=== PATIENT | female | born 1980 | race Caucasian/White ===

== ENCOUNTER 2016-08-06 18:39 | Emergency (ER) | payer SELFPAY ==
[2016-08-06 19:40] VITALS: BP 133/83
[2016-08-06 20:23] LABS: Basophils % (Auto) 0.7 % (0.0-1.8); Eosinophils % (Auto) 3.1 % (0.0-4.3); Hematocrit 26.3 % (30.3-42.9); Hemoglobin 8.8 gm/dl (10.1-14.3); Mean Corpuscular HGB Conc 33 % (30-34); Mean Corpuscular Hemoglobin 29 pg (28-32); Mean Corpuscular Volume 86 fl (79-97); Platelet Count 301 K/mm3 (140-440); Red Blood Count 3.07 M/mm3 (3.65-5.03); Red Cell Distribution Width 15.9 % (13.2-15.2); White Blood Count 9.7 K/mm3 (4.5-11.0)
[2016-08-07] MEDS ORDERED: TYLENOL #3 PO ONE (00:25)
[2016-08-07 00:34] LABS: Bilirubin,Urine NEG (Negative); Blood,Urine LG (Negative); Ketones,Urine 20 mg/dL (Negative); Leukocyte Esterase,Urine NEG (Negative); Nitrite,Urine NEG (Negative); Protein,Urine <15 mg/dL mg/dL (Negative); Urobilinogen,Urine < 2.0 mg/dL (<2.0); WBC,Urine < 1.0 /HPF (0.0-6.0)
--- NOTE | 2016-08-07 00:56 | Emergency Department Report ---
HPI - General Chief Complaint: Vaginal Bleeding Time Seen by Provider: 08/06/16 23:14 - HPI HPI: The patient is a 36-year-old female who presents for evaluation of vaginal bleeding and abdominal pain. The patient reports abdominal pain for the past 10 days, cramping in quality, 5/10 in severity, exacerbated with retching. She has experienced associated nausea and retching without vomiting. She shares that she has a space irregular menstrual periods for some time. The patient denies fever, trauma to the abdomen or genital tract, diarrhea, blood in the stool, dark tarry stool, dysuria, hematuria, flank pain, vaginal discharge, recurrent epistaxis, hematemesis, hemoptysis, or easy bruising and bleeding. She also denies blood thinner use. ED Past Medical Hx - Past Medical History Previous Medical History?: No - Surgical History Past Surgical History?: No - Social History Smoking Status: Never Smoker Substance Use Type: None - Medications Home Medications: Home Medications Medication Instructions Recorded Confirmed Last Taken Type HYDROcodone/APAP 5-325 [[place] 1 each PO Q6HR PRN #15 tablet 08/07/16 Unknown Rx 5/325] medroxyPROGESTERone ACETATE 5 mg PO QDAY #10 tablet 08/07/16 Unknown Rx [Provera] ED Review of Systems ROS: Stated complaint: ABNORMAL VAGINAL BLEEDING Other details as noted in HPI Constitutional: denies: fever ENT: denies: throat or neck pain Respiratory: denies: cough, shortness of breath Cardiovascular: denies: chest pain Endocrine: denies unexplained weight loss or gain Gastrointestinal: reports abdominal pain, nausea Genitourinary: reports vaginal bleeding Musculoskeletal: denies: leg swelling Skin: denies: rash Neurological: denies: headache Hematological/Lymphatic: denies: easy bleeding or easy bruising Psych: denies sadness or hopelessness Physical Exam - Physical Exam Vital Signs: Vital Signs 08/06/16 19:31 Temperature 98.7 F Pulse Rate 72 Respiratory 18 Rate Blood Pressure 133/83 O2 Sat by Pulse 100 Oximetry Physical Exam: General: well-nourished, well-developed, no acute distress Head: Normocephalic, atraumatic Eyes: normal sclera ENT: Mucous membranes are pale but moist Neck: trachea midline, neck supple, No neck stiffness, no cervical adenopathy Respiratory: Breath sounds equal bilaterally, no wheezing, rales, or rhonchi Cardio: S1 and S2 present, no murmurs, rubs, gallops, capillary refill is brisk Abdomen: Normoactive bowel sounds, soft abdomen, suprapubic and bilateral lower quad tenderness, no rigidity, no guarding or rebound tenderness Chest WALL/Back: No tenderness to palpation of the chest wall, no CVA tenderness with percussion Musc: No pitting edema Skin: No rash, fingernail beds are pale Neuro: no facial drooping, normal speech Psych: Normal affect ED Course Vital Signs 08/06/16 19:31 Temperature 98.7 F Pulse Rate 72 Respiratory 18 Rate Blood Pressure 133/83 O2 Sat by Pulse 100 Oximetry ED Medical Decision Making - Lab Data Result diagrams: 08/06/16 20:01 - Medical Decision Making The patient was seen and examined by myself. The patient is placed on a director of cardiac rehabilitation and continuous pulse ox. On initial evaluation, the patient was found to be in no distress. Evaluation orders are placed. The patient is given a tablet of Tylenol for pain. Lab results revealed mild anemia, hemoglobin 8.8, but labs were non-emergent, including negative test and stable level of platelets, RBCs, hemoglobin, hematocrit. The patient was reevaluated and reported that their symptoms were improved. The patient is given a prescription for Provera for her bleeding and [place] for her pain. The patient is stable for discharge with outpatient follow-up. The patient is given follow-up and return instructions. The patient expressed understanding and agreed with the plan. The patient is discharged in stable condition. Critical care attestation.: If time is entered above; I have spent that time in minutes in the direct care of this critically ill patient, excluding procedure time. ED Disposition Clinical Impression: DUB (dysfunctional uterine bleeding), Abdominal pain, acute, bilateral lower quadrant Disposition: DISCHARGED TO HOME OR SELFCARE Is pt being admited?: No Does the pt Need Aspirin: No Condition: Stable Instructions: Dysfunctional Uterine Bleeding (ED), Uterine Fibroids (ED), Dysmenorrhea (ED), Endometrial Ablation (GEN) Prescriptions: HYDROcodone/APAP 5-325 [[place] 5/325] 1 each PO Q6HR PRN #15 tablet PRN Reason: Pain medroxyPROGESTERone ACETATE [Provera] 5 mg PO QDAY #10 tablet Referrals: PRIMARY CARE, [Primary Care Provider] - 3-5 Days [facility] [Provider Group] - 3-5 Days HAL GODINEZ MD [Staff Physician] - 3-5 Days Time of Disposition: 00:48 Print Language: MONGOLIAN
== END 2016-08-07 01:07 | disposition home or self-care (01) ==
LOC: ED 18:39
DX: N93.8 Other specified abnormal uterine and vaginal bleeding (principal); R10.31 Right lower quadrant pain; R10.32 Left lower quadrant pain
CPT/HCPCS: 36415; 81001; 84702; 85025; 86850; 86900; 86901; 99284